=== PATIENT | male | born 1945 | race Two or more races ===

== ENCOUNTER 2018-10-01 17:19 | Emergency (ER) | payer MEDICARE, OTHER ==
[~2018-10-01] VITALS: Ht 167.6 cm; Wt 99.8 kg
[2018-10-01 17:29] VITALS: BP 160/93
[2018-10-01] MEDS ORDERED: LIDOCAINE 2%HCL (LOCAL ANESTH.) INJ 10ml MDV IJ ONE (19:30)
[2018-10-01] MEDS ORDERED: TRIAMCINOLONE 40MG/ML 1ML VIAL IX ONE (19:30)
[2018-10-01] MEDS ORDERED: LIDOCAINE 2% (LOCAL ANESTH.) PF 5ml SDV ONE (19:40)
== END 2018-10-01 20:30 | disposition home or self-care (01) ==
LOC: ER 17:21
DX: M25.512 Pain in left shoulder (principal); V89.2XXA Person injured in unspecified motor-vehicle accident, traffic, initial encounter; Y93.89 Activity, other specified; Y92.488 Other paved roadways as the place of occurrence of the external cause; Y99.8 Other external cause status
CPT/HCPCS: 73030; 99283; J2001; J3301

== ENCOUNTER 2019-07-26 17:31 | Emergency (ER) | payer MEDICARE, OTHER ==
[~2019-07-26] VITALS: Ht 167.6 cm; Wt 104.3 kg
[2019-07-26 19:01] LABS: Basophils # (auto) 0.1 uL; Basophils % (auto) 1.4 % (0.0-2.0); Eosinophils # (auto) 0.4 uL; Eosinophils % (auto) 4.8 % (0.0-7.0); Hematocrit 47.4 % (41.0-53.0); Hemoglobin 16.5 g/dL (13.5-17.5); Lymphocytes # (auto) 2.4 uL; Lymphocytes % (auto) 31.4 % (10.0-50.0); Mean Corpuscular Hemoglobin 31.7 pg (28.0-32.0); Mean Corpuscular Hgb Conc. 34.7 g/dL (32.0-36.0); Mean Corpuscular Volume 91.3 fL (80.0-100.0); Monocytes # (auto) 0.8 uL; Monocytes % (auto) 10.9 % (0.0-12.0); Neutrophils # (auto) 3.9 uL; Neutrophils % (auto) 51.5 % (37.0-80.0); Nucleated Red Blood Cells % 0.1 %; Platelet Count (auto) 169 10^3/uL (140-450); Red Blood Cells 5.19 10^6/uL (4.5-5.90); Red Cell Distribution Width 13.4 % (11.8-14.3); White Blood Cell 7.5 10^3/uL (4.4-10.8)
[2019-07-26 19:17] LABS: Albumin 2.9 g/dL (3.4-5.0); Calcium 8.7 mg/dL (8.5-10.1); Potassium 4.2 mmol/L (3.5-5.1)
[2019-07-26 19:20] LABS: BUN/Creatinine Ratio 22.8
[2019-07-26 19:22] LABS: Bilirubin, Total 0.3 mg/dL (0.2-1.0)
[2019-07-26 20:07] LABS: Magnesium 1.7 mg/dL (1.6-2.6)
[2019-07-26 20:15] LABS: INR 1.07 (0.9-1.15); Partial Thromboplastin Time 26.4 sec (23.64-32.05)
[2019-07-27 00:37] LABS: Urine Bacteria FEW /hpf (None Seen); Urine Blood Negative /uL (Negative); Urine Hyaline Cast FEW /lpf (0 - 2); Urine Specific Gravity 1.018 (1.001-1.035); Urine WBC <1 /hpf (0 - 3)
[2019-07-27 01:19] VITALS: BP 143/75
[2019-07-27] MEDS ORDERED: CLINDAMYCIN 900MG IV 50 ML IV ONE (02:30)
== END 2019-07-27 02:43 | disposition home or self-care (01) ==
LOC: ER 17:35
DX: L03.116 Cellulitis of left lower limb (principal); L03.115 Cellulitis of right lower limb; E11.65 Type 2 diabetes mellitus with hyperglycemia; I11.0 Hypertensive heart disease with heart failure; I50.9 Heart failure, unspecified; E78.5 Hyperlipidemia, unspecified; I25.2 Old myocardial infarction
CPT/HCPCS: 36415; 71045; 80053; 81001; 82010; 82150; 82962; 83605; 83690; 83735; 85025; 85610; 85730; 86141; 87040; 93005; 99284; J3490

== ENCOUNTER 2019-09-23 14:10 | Inpatient (IN) | payer MEDICARE, OTHER ==
[~2019-09-23] VITALS: Ht 167.6 cm; Wt 97.1 kg
[2019-09-23] MEDS ORDERED: SODIUM CHLORIDE 0.9% 500 ML IV ONE (14:37)
[2019-09-23 15:35] LABS: Basophils # (auto) 0.1 10 ^3/uL (0-0.2); Lymphocytes # (auto) 2.6 10 ^3/uL (0.4-5.4); Mean Corpuscular Hemoglobin 31.8 pg (28.0-32.0); Neutrophils # (auto) 4.6 10 ^3/uL (1.6-8.6)
[2019-09-23 15:37] LABS: Basophils % (auto) 0.8 % (0.0-2.0); Eosinophils # (auto) 0.2 10 ^3/uL (0-0.8); Eosinophils % (auto) 2.4 % (0.0-7.0); Hemoglobin 17.9 g/dL (13.5-17.5); Mean Corpuscular Hgb Conc. 34.5 g/dL (32.0-36.0); Mean Corpuscular Volume 92.3 fL (80.0-100.0); Monocytes % (auto) 12.3 % (0.0-12.0); Neutrophils % (auto) 54.5 % (37.0-80.0); Nucleated Red Blood Cells % 0.4 %; Platelet Count (auto) 156 10^3/uL (140-450); Red Blood Cells 5.63 10^6/uL (4.5-5.90); Red Cell Distribution Width 13.8 % (11.8-14.3); White Blood Cell 8.5 10^3/uL (4.4-10.8)
[2019-09-23 15:44] LABS: Magnesium 1.4 mg/dL (1.6-2.6); Potassium 3.5 mmol/L (3.5-5.1)
[2019-09-23 15:46] LABS: BUN/Creatinine Ratio 22.2
[2019-09-23 15:49] LABS: Bilirubin, Total 0.9 mg/dL (0.2-1.0); Total Protein 7.5 g/dL (6.4-8.2)
[2019-09-23] MEDS ORDERED: PROMETHAZINE HCL 25 MG/ML 1ML IV PRN (17:00)
[2019-09-23] MEDS ORDERED: DEXTROSE (50%) 50ML SYRG IV PRN (17:00)
[2019-09-23] MEDS ORDERED: ACETAMINOPHEN 500 MG TAB PO PRN (17:00)
[2019-09-23] MEDS ORDERED: THIAMINE 100mg/ml INJ (200mg/2ml VIAL) IV ONE (17:00)
[2019-09-23] MEDS ORDERED: chlordiazePOXIDE HCL 25 MG CAP PO PRN (17:00)
[2019-09-23] MEDS ORDERED: NITROGLYCERIN 0.4 MG SL TAB SL PRN (17:00)
[2019-09-23] MEDS ORDERED: MORPHINE SULF INJ 2 MG/ML SYRINGE 1ML IV PRN ×2 (17:00)
[2019-09-23] MEDS ORDERED: LISINOPRIL 5 MG TAB PO ONE (17:15)
[2019-09-23] MEDS: SODIUM CHLORIDE 0.9% 1,000 ML IV SCH (18:34)
[2019-09-23] MEDS: cefTRIAXone 1GM/50ML D5W 50 ML IV SCH (18:35)
[2019-09-23] MEDS: chlordiazePOXIDE HCL 5 MG CAP PO SCH (18:35)
[2019-09-23 18:36] VITALS: BP 191/130
[2019-09-23] MEDS: ENALAPRILAT 1.25 MG/ML-1ML VIAL IV PRN (18:36)
[2019-09-23 19:19] LABS: Urine Bacteria NONE SEEN /hpf (None Seen); Urine Blood Negative /uL (Negative); Urine Specific Gravity 1.028 (1.001-1.035); Urine WBC 1 /hpf (0 - 3)
[2019-09-23] MEDS: ACCU-CHEK COMFORT CURVE STRIP VI SCH (20:00)
[2019-09-23] MEDS: InsuLIN REG 1unit/0.01ml Soln (100units/ml) SC SCH (21:00)
[2019-09-23 22:00] VITALS: BP 155/86
[2019-09-23] MEDS: CLINDAMYCIN 600MG IV 50 ML IV SCH (22:00)
[2019-09-23] MEDS: HYDROcodone-ACET 5/325MG TAB PO PRN (22:02)
[2019-09-23] MEDS: IPRATROPIUM BROM 0.5 MG/2.5ML INH SOL NEB PRN (23:23)
[2019-09-23] MEDS: ALBUTEROL SULF 2.5 MG/0.5ML(0.5%) NEB SOLN NEB PRN (23:23)
[2019-09-23 23:54] VITALS: BP 155/86
[2019-09-24] MEDS: ACCU-CHEK COMFORT CURVE STRIP VI SCH ×7 (00:05→23:53)
[2019-09-24] MEDS: InsuLIN REG 1unit/0.01ml Soln (100units/ml) SC SCH ×7 (00:05→23:53)
[2019-09-24] MEDS: chlordiazePOXIDE HCL 5 MG CAP PO SCH ×5 (00:06→23:53)
[2019-09-24] MEDS: SODIUM CHLORIDE 0.9% 1,000 ML IV SCH ×3 (02:55→22:55)
[2019-09-24 05:00] VITALS: BP 154/87
[2019-09-24] MEDS: HYDROcodone-ACET 5/325MG TAB PO PRN ×2 (05:39→23:53)
[2019-09-24] MEDS: CLINDAMYCIN 600MG IV 50 ML IV SCH ×3 (06:17→22:00)
[2019-09-24 09:10] VITALS: BP 116/52
[2019-09-24] MEDS: cefTRIAXone 1GM/50ML D5W 50 ML IV SCH (09:25)
[2019-09-24] MEDS: THIAMINE 100mg/ml INJ (200mg/2ml VIAL) IV SCH (09:26)
[2019-09-24] MEDS: LISINOPRIL 5 MG TAB PO SCH (09:26)
[2019-09-24 12:43] VITALS: BP 138/84
[2019-09-24 17:25] VITALS: BP 153/96
[2019-09-24 22:00] VITALS: BP 151/101
[2019-09-24] MEDS: CILOSTAZOL 100 MG TAB PO SCH (22:00)
[2019-09-25] VITALS (7 sets, daily range): BP systolic 114–147; BP diastolic 62–82
[2019-09-25] MEDS: ACCU-CHEK COMFORT CURVE STRIP VI SCH ×5 (04:24→21:41)
[2019-09-25] MEDS: InsuLIN REG 1unit/0.01ml Soln (100units/ml) SC SCH ×5 (04:24→21:43)
[2019-09-25] MEDS: chlordiazePOXIDE HCL 5 MG CAP PO SCH (06:07)
[2019-09-25] MEDS: CLINDAMYCIN 600MG IV 50 ML IV SCH ×2 (06:07→14:01)
[2019-09-25] MEDS: HYDROcodone-ACET 5/325MG TAB PO PRN (08:04)
[2019-09-25] MEDS: SODIUM CHLORIDE 0.9% 1,000 ML IV SCH ×2 (08:55→17:17)
[2019-09-25] MEDS ORDERED: ALPRAZolam 0.25 MG TAB PO PRN (09:30)
[2019-09-25] MEDS: cefTRIAXone 1GM/50ML D5W 50 ML IV SCH (09:36)
[2019-09-25] MEDS: LISINOPRIL 5 MG TAB PO SCH (09:39)
[2019-09-25] MEDS: CILOSTAZOL 100 MG TAB PO SCH ×2 (09:40→21:41)
[2019-09-25] MEDS: THIAMINE 100mg/ml INJ (200mg/2ml VIAL) IV SCH (09:40)
[2019-09-25] MEDS ORDERED: METF500S PO (14:47)
[2019-09-25] MEDS ORDERED: ATOR10TA52 PO (14:47)
[2019-09-25] MEDS ORDERED: AMLO5TAB15 PO (14:47)
[2019-09-25] MEDS ORDERED: MIRA25TA OR (14:47)
[2019-09-25] MEDS ORDERED: CARV3.1240 PO (14:47)
[2019-09-25] MEDS ORDERED: FINA5TAB4 PO (14:47)
[2019-09-25] MEDS ORDERED: LOSA-69 PO (14:47)
[2019-09-25] MEDS ORDERED: POTA10TA51 PO (14:47)
[2019-09-25] MEDS ORDERED: SITA50TA PO (14:47)
[2019-09-25] MEDS ORDERED: FUROSEMIDE 100 MG/10ML VIAL IV ONE (17:30)
[2019-09-25 18:06] LABS: Alcohol, Urine < 3.0 mg/dL (0-5); Amphetamine Screen, Urine POSITIVE (NEGATIVE); Barbiturate Scree,Urine NEGATIVE (NEGATIVE); Benzodiazephine Screen, Urine POSITIVE (NEGATIVE); Cannabinoid Screen, Urine NEGATIVE (NEGATIVE); Cocaine Screen, Urine NEGATIVE (NEGATIVE); Opiate Scree,Urine NEGATIVE (NEGATIVE)
[2019-09-25 18:14] LABS: Phencyclidine Screen, Urine NEGATIVE (NEGATIVE)
[2019-09-25] MEDS ORDERED: DEXTROSE (50%) 50ML SYRG IV PRN (18:30)
[2019-09-25] MEDS: ALBUTEROL SULF 2.5 MG/0.5ML(0.5%) NEB SOLN NEB PRN (18:30)
[2019-09-25] MEDS: SOD CHL 0.45% WITH 20MEQ KCL 1,000 ML IV SCH (18:30)
[2019-09-25] MEDS: IPRATROPIUM BROM 0.5 MG/2.5ML INH SOL NEB PRN (18:30)
[2019-09-25] MEDS ORDERED: LORazepam 2MG/ML-1ML VIAL IV PRN (18:30)
[2019-09-25] MEDS ORDERED: CALCIUM CHL 100MG/ML 1,000 MG in D5W 5% 100 ML IV ONE (18:30)
[2019-09-25] MEDS ORDERED: FOLIC ACID 1 MG TAB PO ONE (18:30)
[2019-09-25] MEDS ORDERED: FUROSEMIDE 100 MG/10ML VIAL IV SCH (18:51)
[2019-09-25] MEDS ORDERED: MAGNESIUM SULFATE 1GM/100ML 100 ML IV ONE (19:00)
[2019-09-25] MEDS: ENOXAPARIN SOD 40 MG/0.4 ML SYRINGE SC SCH (19:02)
[2019-09-25] MEDS: ATORVASTATIN 20 MG TAB PO SCH (21:41)
[2019-09-26] VITALS (8 sets, daily range): BP systolic 116–162; BP diastolic 72–106
[2019-09-26] MEDS: SOD CHL 0.45% WITH 20MEQ KCL 1,000 ML IV SCH (04:30)
[2019-09-26] MEDS: ENALAPRILAT 1.25 MG/ML-1ML VIAL IV PRN (04:47)
[2019-09-26 06:03] LABS: Basophils # (auto) 0.1 10 ^3/uL (0-0.2); Basophils % (auto) 1.2 % (0.0-2.0); Eosinophils # (auto) 0.4 10 ^3/uL (0-0.8); Eosinophils % (auto) 5.7 % (0.0-7.0); Hematocrit 46.5 % (41.0-53.0); Lymphocytes # (auto) 1.6 10 ^3/uL (0.4-5.4); Lymphocytes % (auto) 22.9 % (10.0-50.0); Mean Corpuscular Hemoglobin 31.9 pg (28.0-32.0); Mean Corpuscular Hgb Conc. 34.5 g/dL (32.0-36.0); Mean Corpuscular Volume 92.4 fL (80.0-100.0); Monocytes # (auto) 0.9 10 ^3/uL (0-1.3); Monocytes % (auto) 12.3 % (0.0-12.0); Neutrophils # (auto) 4.1 10 ^3/uL (1.6-8.6); Neutrophils % (auto) 57.9 % (37.0-80.0); Nucleated Red Blood Cells % 0.1 %; Platelet Count (auto) 137 10^3/uL (140-450); Red Blood Cells 5.03 10^6/uL (4.5-5.90); Red Cell Distribution Width 13.5 % (11.8-14.3)
[2019-09-26] MEDS: FUROSEMIDE 100 MG/10ML VIAL IV SCH ×2 (06:09→18:14)
[2019-09-26 06:25] LABS: Albumin 2.5 g/dL (3.4-5.0); Calcium 8.7 mg/dL (8.5-10.1); Magnesium 2.1 mg/dL (1.6-2.6); Potassium 3.8 mmol/L (3.5-5.1)
[2019-09-26 06:29] LABS: BUN/Creatinine Ratio 15.6; Bilirubin, Total 0.5 mg/dL (0.2-1.0); Phosphorus 3.4 mg/dL (2.5-4.90); Total Protein 6.4 g/dL (6.4-8.2)
[2019-09-26] MEDS: ALBUTEROL SULF 2.5 MG/0.5ML(0.5%) NEB SOLN NEB PRN ×5 (06:30→22:14)
[2019-09-26] MEDS: IPRATROPIUM BROM 0.5 MG/2.5ML INH SOL NEB SCH ×5 (06:30→22:14)
[2019-09-26] MEDS: ACCU-CHEK COMFORT CURVE STRIP VI SCH ×4 (07:01→22:00)
[2019-09-26] MEDS: InsuLIN REG 1unit/0.01ml Soln (100units/ml) SC SCH ×4 (07:01→22:00)
[2019-09-26] MEDS: ASPirin 81 mg TAB PO SCH (10:22)
[2019-09-26] MEDS: THIAMINE 100mg/ml INJ (200mg/2ml VIAL) IV SCH (10:22)
[2019-09-26] MEDS: FOLIC ACID 1 MG TAB PO SCH (10:23)
[2019-09-26] MEDS: LISINOPRIL 5 MG TAB PO SCH (10:23)
[2019-09-26] MEDS: CILOSTAZOL 100 MG TAB PO SCH (10:23)
[2019-09-26] MEDS: ENOXAPARIN SOD 40 MG/0.4 ML SYRINGE SC SCH (10:24)
[2019-09-26] MEDS ORDERED: AMLO5TAB15 PO (14:07)
[2019-09-26] MEDS ORDERED: ATOR10TA52 PO (14:07)
[2019-09-26] MEDS ORDERED: CARV3.1240 PO (14:07)
[2019-09-26] MEDS ORDERED: LOSARTAN POTASSIUM 50 MG TAB PO ONE (14:15)
[2019-09-26] MEDS ORDERED: amLODIPine BESYLATE 5 MG TAB PO ONE (14:15)
[2019-09-26] MEDS ORDERED: METF-372 PO (14:18)
[2019-09-26] MEDS ORDERED: SITA100T7 PO (14:19)
[2019-09-26] MEDS: ATORVASTATIN 20 MG TAB PO SCH (22:00)
[2019-09-27] MEDS: ALBUTEROL SULF 2.5 MG/0.5ML(0.5%) NEB SOLN NEB PRN ×4 (02:28→21:58)
[2019-09-27] MEDS: IPRATROPIUM BROM 0.5 MG/2.5ML INH SOL NEB SCH ×6 (02:28→21:59)
[2019-09-27 05:46] VITALS: BP 183/77
[2019-09-27] MEDS: FUROSEMIDE 100 MG/10ML VIAL IV SCH ×2 (06:18→17:23)
[2019-09-27] MEDS: ACCU-CHEK COMFORT CURVE STRIP VI SCH ×4 (06:30→22:12)
[2019-09-27] MEDS: InsuLIN REG 1unit/0.01ml Soln (100units/ml) SC SCH ×4 (06:35→22:40)
[2019-09-27 09:00] VITALS: BP 167/92
[2019-09-27] MEDS: ENOXAPARIN SOD 40 MG/0.4 ML SYRINGE SC SCH (09:15)
[2019-09-27] MEDS: THIAMINE 100mg/ml INJ (200mg/2ml VIAL) IV SCH (09:15)
[2019-09-27] MEDS: FOLIC ACID 1 MG TAB PO SCH (09:16)
[2019-09-27] MEDS: amLODIPine BESYLATE 5 MG TAB PO SCH (09:17)
[2019-09-27] MEDS: LOSARTAN POTASSIUM 50 MG TAB PO SCH (09:18)
[2019-09-27] MEDS: HYDROcodone-ACET 5/325MG TAB PO PRN (09:18)
[2019-09-27] MEDS: ASPirin 81 mg TAB PO SCH (09:18)
[2019-09-27 14:15] VITALS: BP 131/89
[2019-09-27 16:29] VITALS: BP 149/96
[2019-09-27] MEDS ORDERED: CARVEDILOL 12.5 MG TAB PO ONE (19:00)
[2019-09-27] MEDS: CARVEDILOL 12.5 MG TAB PO SCH (19:45)
[2019-09-27 22:00] VITALS: BP 141/77
[2019-09-27] MEDS: ATORVASTATIN 20 MG TAB PO SCH (22:04)
[2019-09-27 22:15] LABS: Folate (Folic Acid) > 24.00 ng/mL (5.38-24)
[2019-09-28] MEDS: ALBUTEROL SULF 2.5 MG/0.5ML(0.5%) NEB SOLN NEB PRN ×4 (02:33→15:02)
[2019-09-28] MEDS: IPRATROPIUM BROM 0.5 MG/2.5ML INH SOL NEB SCH ×4 (02:33→15:02)
[2019-09-28 05:00] VITALS: BP 164/81
[2019-09-28] MEDS: CARVEDILOL 12.5 MG TAB PO SCH (06:31)
[2019-09-28] MEDS: ACCU-CHEK COMFORT CURVE STRIP VI SCH ×2 (06:34→12:09)
[2019-09-28] MEDS: HYDROcodone-ACET 5/325MG TAB PO PRN (06:39)
[2019-09-28] MEDS: InsuLIN REG 1unit/0.01ml Soln (100units/ml) SC SCH ×2 (06:41→12:22)
[2019-09-28 09:00] VITALS: BP 123/95
[2019-09-28] MEDS: THIAMINE 100mg/ml INJ (200mg/2ml VIAL) IV SCH (09:39)
[2019-09-28] MEDS: ENOXAPARIN SOD 40 MG/0.4 ML SYRINGE SC SCH (09:39)
[2019-09-28] MEDS: LOSARTAN POTASSIUM 50 MG TAB PO SCH (09:40)
[2019-09-28] MEDS: ASPirin 81 mg TAB PO SCH (09:40)
[2019-09-28] MEDS: amLODIPine BESYLATE 5 MG TAB PO SCH (09:40)
[2019-09-28] MEDS: FOLIC ACID 1 MG TAB PO SCH (09:41)
[2019-09-28] MEDS ORDERED: cefTRIAXone 1GM/50ML D5W 50 ML IV ONE (11:45)
[2019-09-28 13:00] VITALS: BP 137/96
[2019-09-28] MEDS ORDERED: CEPH-37 PO (16:28)
[2019-09-28] MEDS ORDERED: LOSA-69 PO (16:29)
[2019-09-28 16:41] VITALS: BP 137/96
== END 2019-09-28 17:45 | disposition home or self-care (01) | DRG 420 ==
LOC: ER 14:11 → TELE-CENTR 14:12
PROVIDERS: ADMIT Internal Medicine; ATTEND Internal Medicine Nephrology
DX: E11.65 Type 2 diabetes mellitus with hyperglycemia (principal); J96.21 Acute and chronic respiratory failure with hypoxia; I50.31 Acute diastolic (congestive) heart failure; G93.41 Metabolic encephalopathy; E11.51 Type 2 diabetes mellitus with diabetic peripheral angiopathy without gangrene; L03.115 Cellulitis of right lower limb; L03.116 Cellulitis of left lower limb; I11.0 Hypertensive heart disease with heart failure; F10.239 Alcohol dependence with withdrawal, unspecified; J44.9 Chronic obstructive pulmonary disease, unspecified; I49.3 Ventricular premature depolarization; F15.10 Other stimulant abuse, uncomplicated; I16.0 Hypertensive urgency; N40.0 Benign prostatic hyperplasia without lower urinary tract symptoms; K70.9 Alcoholic liver disease, unspecified; I16.9 Hypertensive crisis, unspecified; I25.10 Atherosclerotic heart disease of native coronary artery without angina pectoris; E78.5 Hyperlipidemia, unspecified; I67.2 Cerebral atherosclerosis; Z91.14 Patient's other noncompliance with medication regimen; Z91.19 Patient's noncompliance with other medical treatment and regimen; Z79.899 Other long term (current) drug therapy; I25.2 Old myocardial infarction; Y90.0 Blood alcohol level of less than 20 mg/100 ml
CPT/HCPCS: 36415; 36600; 70450; 71045; 80053; 80307; 81001; 82607; 82746; 82805; 82962; 82977; 83036; 83735; 84100; 84443; 85025; 85652; 93005; 93926; 93970; 94640; 97163; G0378; J0696; J1815; J3490; J7060

== ENCOUNTER 2021-06-02 15:51 | Emergency (ER) | payer MEDICARE, OTHER ==
[~2021-06-02] VITALS: Ht 165.1 cm; Wt 81.6 kg
[~2021-06-02 15:51] MED LIST: AMLO-489 PO; ATOR10TA52 PO; CARV3.1240 PO; CEPH-37 PO; FINA5TAB4 PO; LOSA-69 PO; MIRA25TA OR; SITA50TA PO
[2021-06-02] MEDS ORDERED: SODIUM CHLORIDE 0.9% 1,000 ML IV ONE (16:00)
[2021-06-02 16:51] LABS: Basophils # (auto) 0.1 10 ^3/uL (0-0.2); Eosinophils # (auto) 0.4 10 ^3/uL (0-0.8); Eosinophils % (auto) 4.1 % (0.0-7.0); Hematocrit 42.8 % (41.0-53.0); Hemoglobin 14.5 g/dL (13.5-17.5); Lymphocytes % (auto) 23.8 % (10.0-50.0); Mean Corpuscular Hemoglobin 30.6 pg (28.0-32.0); Monocytes # (auto) 0.9 10 ^3/uL (0-1.3); Monocytes % (auto) 10.9 % (0.0-12.0); Neutrophils # (auto) 5.2 10 ^3/uL (1.6-8.6); Neutrophils % (auto) 60.2 % (37.0-80.0); Red Blood Cells 4.75 10^6/uL (4.5-5.90); Red Cell Distribution Width 13.2 % (11.8-14.3); White Blood Cell 8.6 10^3/uL (4.4-10.8)
[2021-06-02 17:08] LABS: Albumin 2.9 g/dL (3.4-5.0); Calcium 9.3 mg/dL (8.5-10.1); Potassium 4.8 mmol/L (3.5-5.1)
[2021-06-02 17:14] LABS: BUN/Creatinine Ratio 26.1; Bilirubin, Total 0.4 mg/dL (0.2-1.0); Total Protein 6.9 g/dL (6.4-8.2)
[2021-06-02 17:44] LABS: Urine Bacteria FEW /hpf (None Seen); Urine Blood Negative /uL (Negative); Urine Specific Gravity 1.016 (1.001-1.035); Urine WBC 3 /hpf (0 - 3)
[2021-06-02 21:10] VITALS: BP 140/80
== END 2021-06-02 21:38 | disposition home or self-care (01) ==
LOC: EDBD 15:51 → ER 15:51 → EDUNIT# 15:51 → ER 21:14
DX: N39.0 Urinary tract infection, site not specified (principal); R53.1 Weakness; R42 Dizziness and giddiness; I11.0 Hypertensive heart disease with heart failure; I50.9 Heart failure, unspecified; I25.10 Atherosclerotic heart disease of native coronary artery without angina pectoris; I25.2 Old myocardial infarction; E78.5 Hyperlipidemia, unspecified; F17.210 Nicotine dependence, cigarettes, uncomplicated; Z79.899 Other long term (current) drug therapy
CPT/HCPCS: 36415; 80053; 81001; 83605; 85025; 93005